=== PATIENT | male | born 1975 | race Caucasian/White ===

== ENCOUNTER → 2017-07-17 12:47 | Outpatient (CLI) | payer BC, SELFPAY ==
--- NOTE | 2017-07-17 12:52 | XR_ITS ---
XR shoulder RT min 2V HISTORY: ITS.REASON: Right shoulder pain ORDERING PHYSICIAN: Eris Johnson MD PATIENT AGE: 41 years COMPARISON: None FINDINGS: No fracture or dislocation. No lytic or blastic change. There is normal mineralization. The joint spaces are well-preserved. No significant degenerative/arthritic changes. No erosive changes evident. IMPRESSION: Negative, no acute finding
== END ==
PROVIDERS: Visit Provider Orthopaedic Surgery
DX: M25.511 Pain in right shoulder (principal)
CPT/HCPCS: 73030

== ENCOUNTER 2017-08-20 13:00 | Outpatient (RCR) | payer BC, SELFPAY ==
--- NOTE | 2017-07-22 14:09 | HMH.PTOPEV ---
Rehab Outpatient Evaluation Rehab OP Evaluation Start: 07/22/17 13:53 Freq: Status: Active Protocol: Document 07/22/17 13:54 RMESTEBAN (Rec: 07/22/17 14:08 RMESTEBAN [id number]) Electronically Signed By Sonia Salinas OT 07/22/17 13:54 Outpatient Therapy Subjective History Subjective History Pt is a 41 year old male who is seen this date for initial evaluation to right shoulder. Pt reports his shoulder began hurting him over the summer and has continued to become worse. Pt informed therapist at the beginning of may 2017 his pain increased even more and he went to the doctor . Pt was dx with right shoulder impingement. Pt does demonstrate with slight decreased AROM at Right shoulder. Pt was given HEP of shanell exercises to begin 2 -3 times a day. Chief Complaint Pain Stiff Symptom Type Ache Throb Dull Symptoms Relieved By Nothing Symptoms Aggravated By Physical Activity Lifting Prior Functional Limitations None Current Functional Limitations Reaching Lifting Housework Desk Work/Reading Sleeping Recreation Activity Symptom Description Intermittent Activity Dependent Level of pain today (0-10) 1 Pain scale - at its best (0-10) 0 Pain scale - at its worst (0-10) 4 Shoulder/Elbow Eval Shoulder Objective Measurements Palpation Tenderness tenderness shoulder exam standard right Shoulder Palpation Findings Tenderness Posture Shoulder Posture Sitting Position (R) Rounded Shoulder Posture Standing Position (R) Rounded Shoulder ROM Left Shoulder Abduction Active Range of 145 Motion (degrees) Shoulder Flexion Active Range of Motion 155 (degrees) Query Text: Shoulder External Rotation Active Range 90 of Motion (degrees) Shoulder Internal Rotation Active Range 95 of Motion (degrees) Right Shoulder ROM Limitations Pain Shoulder Abduction Active Range of 130 Motion (degrees)
== END 2017-08-20 13:01 | disposition home or self-care (01) ==
LOC: OT 13:00
PROVIDERS: Visit Provider Orthopaedic Surgery
DX: M75.41 Impingement syndrome of right shoulder (principal); M25.811 Other specified joint disorders, right shoulder
CPT/HCPCS: 97014; 97110; 97165; G0283

== ENCOUNTER → 2017-12-26 07:50 | Outpatient (CLI) | payer BC, SELFPAY ==
[2017-12-26 08:33] LABS: Anion Gap 11.1 mEq/L (5-15); Blood Urea Nitrogen 18 mg/dL (7-18); Carbon Dioxide 28 mmol/L (21.0-32.0); Chloride 107 mmol/L (98-107); Chol/HDL Ratio 3.1 (1-3.5); Cholesterol 153 mg/dL (140-200); Estimated Glomerular Filt Rate 93 ml/min (>60); GFR (African American) 112 ML/MIN (>60); Glucose 111 mg/dL (74-106); HDL Cholesterol 50 mg/dL (27-67); LDL Cholesterol 84 mg/dL (0-130); Potassium 4.1 mmoL/L (3.5-5.1); Sodium 142 mmol/L (136-145); Triglycerides 97 mg/dL (30-200); VLDL Cholesterol 19 mg/dL (0-40)
== END ==
PROVIDERS: Visit Provider Family Medicine
DX: Z00.00 Encounter for general adult medical examination without abnormal findings (principal)
CPT/HCPCS: 36415; 80048; 80061

== ENCOUNTER → 2018-11-10 10:17 | Outpatient (POV) | payer BC, SELFPAY | PROVIDERS: Visit Provider Dermatology | DX: Z00.00 Encounter for general adult medical examination without abnormal findings (principal) ==

== ENCOUNTER → 2018-12-15 11:12 | Outpatient (POV) | payer BC, SELFPAY | PROVIDERS: Visit Provider Dermatology | DX: Z00.00 Encounter for general adult medical examination without abnormal findings (principal) ==

== ENCOUNTER → 2019-02-02 15:12 | Outpatient (POV) | payer BC, SELFPAY | PROVIDERS: Visit Provider Dermatology | DX: Z00.00 Encounter for general adult medical examination without abnormal findings (principal) ==

== ENCOUNTER → 2019-04-06 15:23 | Outpatient (POV) | payer BC, SELFPAY | PROVIDERS: Visit Provider Dermatology | DX: Z00.00 Encounter for general adult medical examination without abnormal findings (principal) ==

== ENCOUNTER → 2019-04-14 11:51 | Outpatient (CLI) | payer BC, SELFPAY ==
[2019-04-15 06:16] LABS: FSH 6.5 mIU/mL (1.5-12.4); LH 7.1 mIU/mL (1.7-8.6)
[2019-04-15 11:01] LABS: Prolactin 9.8 ng/mL (4.0-15.2)
[2019-04-17 18:52] LABS: Testosterone, Total, LC/MS 213.1 ng/dL (264.0-916.0); Testosterone,Free 3.8 pg/mL (6.8-21.5)
== END ==
PROVIDERS: Visit Provider Urology
DX: E29.1 Testicular hypofunction (principal)
CPT/HCPCS: 36415; 83001; 83002; 84146; 84402; 84403

== ENCOUNTER → 2019-04-20 13:46 | Outpatient (POV) | payer BC, SELFPAY | PROVIDERS: Visit Provider Dermatology | DX: Z00.00 Encounter for general adult medical examination without abnormal findings (principal) ==

== ENCOUNTER → 2019-06-08 11:13 | Outpatient (CLI) | payer BC, SELFPAY ==
[2019-06-14 16:39] LABS: Testosterone, Total, LC/MS 456.1 ng/dL (264.0-916.0); Testosterone,Free 18.1 pg/mL (6.8-21.5)
== END ==
PROVIDERS: Visit Provider Urology
DX: E29.1 Testicular hypofunction (principal)
CPT/HCPCS: 36415; 84402; 84403

== ENCOUNTER → 2019-12-21 15:23 | Outpatient (POV) | payer BC, SELFPAY | PROVIDERS: PCP Family Medicine; Visit Provider Physician Assistant | DX: Z00.00 Encounter for general adult medical examination without abnormal findings (principal) ==

== ENCOUNTER → 2020-02-15 11:16 | Outpatient (POV) | payer BC, SELFPAY | PROVIDERS: Visit Provider Dermatology | DX: Z00.00 Encounter for general adult medical examination without abnormal findings (principal) ==

== ENCOUNTER → 2020-05-09 13:38 | Outpatient (POV) | payer BC, SELFPAY | PROVIDERS: Visit Provider Dermatology | DX: Z00.00 Encounter for general adult medical examination without abnormal findings (principal) ==

== ENCOUNTER → 2020-05-23 13:47 | Outpatient (POV) | payer BC, SELFPAY | PROVIDERS: Visit Provider Dermatology | DX: Z00.00 Encounter for general adult medical examination without abnormal findings (principal) ==

== ENCOUNTER → 2020-06-07 09:48 | Outpatient (CLI) | payer BC, SELFPAY ==
[2020-06-07 10:38] LABS: Eosinophils % 0.6 % (0.1-12.0); Hematocrit 49.9 % (42.0-52.0); Hemoglobin 16.7 g/dL (14.1-18.0); Lymphocytes # 1.5 K/mm3 (0.7-4.5); Lymphocytes % 36.4 % (10-50); Mean Corpuscular HGB Conc 33.5 g/dL (31.8-35.4); Mean Corpuscular Hemoglobin 31.3 pg (27.0-31.2); Mean Corpuscular Volume 93.5 fl (80-94); Mean Platelet Volume 8.7 fl (7.4-10.4); Monocytes # 0.2 K/mm3 (0.1-1.0); Monocytes % 5.3 % (1.7-9.3); Neutrophils # 2.4 K/mm3 (1.8-7.8); Neutrophils % 56.6 % (37.0-80.0); Platelet Count 229 K/mm3 (142-424); Red Blood Count 5.34 M/mm3 (4.60-6.20); Red Cell Distribution Width 13.8 % (11.5-17.5); White Blood Count 4.2 K/mm3 (4.8-10.8)
[2020-06-07 10:52] LABS: Chloride 103 mmol/L (98-107); Sodium 139 mmol/L (136-145)
[2020-06-07 10:55] LABS: Alanine Aminotransferase 36 U/L (12-78); Albumin Level 4.8 g/dl (3.5-5.0); Albumin/Globulin Ratio 1.8 (1.1-1.8); Alkaline Phosphatase 83 U/L (38-126); Aspartate Amino Transferase 41 U/L (17-59); Bilirubin,Total 0.7 mg/dl (0.2-1.3); Blood Urea Nitrogen 23 mg/dl (9-20); Calcium 10.1 mg/dl (8.4-10.2); Chol/HDL Ratio 2.5 (1-3.5); Cholesterol 168 mg/dl (140-200); Estimated Glomerular Filt Rate 55 ml/min (>60); GFR (African American) 67 ML/MIN (>60); Globulin 2.7 g/dL (1.3-3.2); Glucose 106 mg/dl (74-100); HDL Cholesterol 67 mg/dl (40-60); Total Protein,Serum 7.5 g/dl (6.3-8.2); Triglycerides 68 mg/dl (30-150); VLDL Cholesterol 14 mg/dL (0-40)
[2020-06-07 11:06] LABS: Direct LDL Cholesterol 70.28 mg/dL (100-129)
[2020-06-07 15:02] LABS: Carbon Dioxide 30 mmol/L (22.0-30.0)
[2020-06-12 16:11] LABS: Testosterone, Total, LC/MS 510.6 ng/dL (264.0-916.0)
== END ==
PROVIDERS: Visit Provider Family Medicine
DX: Z00.00 Encounter for general adult medical examination without abnormal findings (principal); E29.1 Testicular hypofunction; Z79.899 Other long term (current) drug therapy
CPT/HCPCS: 36415; 80053; 80061; 84403; 85025

== ENCOUNTER → 2020-12-01 09:03 | Outpatient (CLI) | payer BC, SELFPAY ==
--- NOTE | 2020-12-01 09:07 | XR_ITS ---
PROCEDURE: XR SHOULDER RT MIN 2V CLINICAL INDICATION: RT shoulder pain COMPARISON: CR SHOULDCMRT XR shoulder RT min 2V from 07/17/2017 FINDINGS: There are mild osteoarthritic changes of the glenohumeral joint. There is mild widening of the acromioclavicular joint space. Images performed today are different positioning and compared to the previous exam. There is questionable sclerosis along the humeral head raising the suspicion of avascular necrosis. Sub chondral cystic change may also be present as seen on the axillary view. The humeral head is never well seen on face. IMPRESSION: Mild osteoarthritic change with mild prominence of the acromioclavicular joint space. 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
== END ==
PROVIDERS: PCP Family Medicine; Visit Provider Orthopaedic Surgery
DX: M25.511 Pain in right shoulder (principal)
CPT/HCPCS: 73030

== ENCOUNTER → 2021-01-09 10:21 | Outpatient (POV) | payer BC, SELFPAY | PROVIDERS: Visit Provider Dermatology | DX: Z00.00 Encounter for general adult medical examination without abnormal findings (principal) ==

== ENCOUNTER → 2021-02-13 15:04 | Outpatient (POV) | payer BC, SELFPAY | PROVIDERS: Visit Provider Dermatology | DX: Z00.00 Encounter for general adult medical examination without abnormal findings (principal) ==

== ENCOUNTER → 2021-02-27 16:02 | Outpatient (POV) | payer BC, SELFPAY | PROVIDERS: Visit Provider Dermatology | DX: Z00.00 Encounter for general adult medical examination without abnormal findings (principal) ==

== ENCOUNTER → 2021-03-27 14:35 | Outpatient (POV) | payer BC, SELFPAY | PROVIDERS: Visit Provider Dermatology | DX: Z00.00 Encounter for general adult medical examination without abnormal findings (principal) ==

== ENCOUNTER → 2021-05-22 14:46 | Outpatient (POV) | payer BC, SELFPAY | PROVIDERS: Visit Provider Dermatology | DX: Z00.00 Encounter for general adult medical examination without abnormal findings (principal) ==

== ENCOUNTER → 2021-06-05 15:14 | Outpatient (POV) | payer BC, SELFPAY | PROVIDERS: Visit Provider Dermatology | DX: Z00.00 Encounter for general adult medical examination without abnormal findings (principal) ==

== ENCOUNTER → 2021-08-02 08:37 | Outpatient (CLI) | payer BC, SELFPAY ==
--- NOTE | 2021-08-02 08:43 | XR_ITS ---
FINAL REPORT CLINICAL HISTORY: RT shoulder pain COMPARISON: December 01, 2020 FINDINGS: RIGHT SHOULDER: 3 views of the right shoulder were obtained. There is no acute fracture or dislocation. There is mild widening of the AC joint, stable from prior. There are mild degenerative changes of the acromioclavicular and the glenohumeral joints. IMPRESSION: Mild degenerative change. Reviewed, Interpreted and Dictated by Pedro Salamanca III, MD Transcribed by Mundo Conrad Authenticated by Pedro Salamanca III, MD on 08/02/2021 10:22:[address] [facility] [place]
== END ==
PROVIDERS: PCP Family Medicine; Visit Provider Orthopaedic Surgery
DX: M25.511 Pain in right shoulder (principal)
CPT/HCPCS: 73030

== ENCOUNTER → 2021-10-30 08:13 | Outpatient (POV) | payer BC, SELFPAY | PROVIDERS: Visit Provider Dermatology | DX: Z00.00 Encounter for general adult medical examination without abnormal findings (principal) ==

== ENCOUNTER → 2021-11-27 15:46 | Outpatient (POV) | payer BC, SELFPAY | PROVIDERS: Visit Provider Dermatology | DX: Z00.00 Encounter for general adult medical examination without abnormal findings (principal) ==

== ENCOUNTER → 2022-01-29 14:20 | Outpatient (POV) | payer BC, SELFPAY | PROVIDERS: Visit Provider Dermatology | DX: Z00.00 Encounter for general adult medical examination without abnormal findings (principal) ==

== ENCOUNTER → 2022-02-19 16:10 | Outpatient (POV) | payer BC, SELFPAY | PROVIDERS: Visit Provider Dermatology | DX: Z00.00 Encounter for general adult medical examination without abnormal findings (principal) ==

== ENCOUNTER → 2022-12-16 11:34 | Outpatient (CLI) | payer BC, SELFPAY ==
--- NOTE | 2022-12-16 11:59 | ECG_ITS ---
APPROVED REPORT Exam: Resting ECG HR:73 bpm ECG Measurements Heart Rate [address] 191 P 58 QRSd 130 QRS 87 QT 356 T 62 QTc 382 Conclusion SINUS RHYTHM NORMAL ECG UNCONFIRMED REPORT Electronically signed by : Shashank Hill MD 12/16/2022 21:25:39
[2022-12-16 12:20] LABS: Basophils # 0.1 K/mm3 (0-0.2); Basophils % 1.4 % (0.1-2.0); Eosinophils # 0.1 K/mm3 (0.0-0.4); Eosinophils % 2.4 % (0.1-12.0); Hematocrit 54.2 % (42.0-52.0); Hemoglobin 16.7 g/dL (14.1-18.0); Lymphocytes # 1.2 K/mm3 (0.7-4.5); Lymphocytes % 28.8 % (10-50); Mean Corpuscular HGB Conc 30.8 g/dL (31.8-35.4); Mean Corpuscular Hemoglobin 29.9 pg (27.0-31.2); Mean Corpuscular Volume 96.8 fl (80-94); Mean Platelet Volume 8.5 fl (7.4-10.4); Monocytes # 0.3 K/mm3 (0.1-1.0); Monocytes % 8.1 % (1.7-9.3); Neutrophils # 2.4 K/mm3 (1.8-7.8); Neutrophils % 59.3 % (37.0-80.0); Platelet Count 206 K/mm3 (142-424); Red Blood Count 5.59 M/mm3 (4.60-6.20); Red Cell Distribution Width 14.7 % (11.5-17.5); White Blood Count 4.1 K/mm3 (4.8-10.8)
[2022-12-16 12:36] LABS: Alanine Aminotransferase 48 U/L (12-78); Albumin Level 4.3 g/dl (3.5-5.0); Albumin/Globulin Ratio 1.7 (1.1-1.8); Alkaline Phosphatase 48 U/L (38-126); Anion Gap 14.3 mEq/L (5-15); Aspartate Amino Transferase 51 U/L (17-59); Bilirubin,Total 0.7 mg/dl (0.2-1.3); Blood Urea Nitrogen 18 mg/dl (9-20); Calcium 8.9 mg/dl (8.4-10.2); Carbon Dioxide 29 mmol/L (22.0-30.0); Chloride 102 mmol/L (98-107); Estimated Glomerular Filt Rate 65 ml/min (>60); GFR (African American) 79 ML/MIN (>60); Globulin 2.6 g/dL (1.3-3.2); Glucose 83 mg/dl (74-100); Magnesium 1.8 mg/dl (1.6-2.3); Phosphorous 2.8 mg/dl (2.5-4.5); Potassium 4.3 mmoL/L (3.5-5.1); Sodium 141 mmol/L (136-145); Total Protein,Serum 6.9 g/dl (6.3-8.2)
[2022-12-16 12:52] LABS: 25-OH Vitamin D, Total 64.7 ng/mL (30-100)
[2022-12-16 13:07] LABS: Thyroid Stimulating Hormone 1.24 uIU/mL (0.465-4.68)
[2022-12-16 13:26] LABS: Vitamin B12 520 pg/mL (239-931)
== END ==
PROVIDERS: PCP Family Medicine; Visit Provider Family Medicine
DX: R00.2 Palpitations (principal); R53.83 Other fatigue; E66.3 Overweight; Z68.29 Body mass index [BMI] 29.0-29.9, adult
CPT/HCPCS: 36415; 80053; 82306; 82607; 83735; 84100; 84443; 85025; 93005

== ENCOUNTER 2024-09-23 09:06 | Outpatient (CLI) | payer OTHER, SELFPAY ==
[2024-09-24 03:41] LABS: Testosterone,Total >1500 ng/dL (264-916)
== END 2024-09-23 23:59 | disposition home or self-care (01) ==
PROVIDERS: PCP Family Medicine; Visit Provider Urology
DX: E29.1 Testicular hypofunction (principal)
CPT/HCPCS: 36415; 84402; 84403